=== PATIENT | female | born 1965 | race American Indian/Alaskan Native ===

== ENCOUNTER 2017-07-03 09:13 | Inpatient (IN) | payer SELFPAY ==
[2017-07-03] MEDS ORDERED: NORMODYNE IV ONE (09:41)
[2017-07-03] MEDS ORDERED: MORPHINE IV ONE ×2 (09:42→10:23)
[2017-07-03] MEDS ORDERED: ZOFRAN IV ONE (09:42)
--- NOTE | 2017-07-03 10:04 | Cat Scan Report ---
CT HEAD WITHOUT CONTRAST INDICATION: Headache. COMPARISON: None similar at this institution. FINDINGS: Noncontrast head CT demonstrates patent cavum septum pellucidum and vergae. Overall normal ventricles and sulci. Mild periventricular hypodense small vessel ischemic disease. No definite acute infarct, hemorrhage, mass effect or midline shift. No abnormal extra axial fluid collections. Normal posterior fossa with preserved basilar cisterns. Vertebrobasilar tortuosity. Normal eye globes. Clear paranasal sinuses and mastoid air cells. Normal calvarium and scalp. Few radiopaque dental material. CONCLUSION: No acute intracranial CT abnormality with microvascular changes noted, as above. Thank you for the opportunity to participate in this patient's care.
--- NOTE | 2017-07-03 10:13 | XRay Report ---
AP CHEST: HISTORY: Hypertension AP view of the chest demonstrates a normal mediastinal and cardiac contour with clear lungs and normal bony and soft tissue structures. IMPRESSION: Unremarkable AP chest.
--- NOTE | 2017-07-03 10:20 | Emergency Department Report ---
ED General Adult HPI - General Stated complaint: BLOOD PRESSURE HIGH Time Seen by Provider: 07/03/17 09:40 Source: patient, family Mode of arrival: Ambulatory Limitations: No Limitations - History of Present Illness Initial comments: Patient presents to the emergency department with a severe headache. She states that she just is given 1 blood pressure medicine a day and that she is taking it. She is providing very little historical information at this time. However she and the gentleman that is with her confirm that she's had many severe headaches like this in the past. They state that sometimes she goes to the hospital and sometimes not. She is somewhat anxious and tearful. The history is somewhat limited. She is acting like she has photo sensitivity and not wanting to open her eyes. She vomited in triage. -: Gradual, hour(s) Location: head Radiation: non-radiation Severity scale (0 -10): 10 Quality: aching Consistency: constant Improves with: none Worsens with: none Associated Symptoms: nausea/vomiting Treatments Prior to Arrival: none - Related Data Allergies Allergy/AdvReac Type Severity Reaction Status Date / Time No Known Allergies Allergy Unverified 07/03/17 09:43 ED Review of Systems ROS: Stated complaint: BLOOD PRESSURE HIGH Other details as noted in HPI Comment: Unobtainable due to pts medical conditions (Limited secondary to patient's condition. No weakness numbness or neurological change reported no neck pain reported) ED Past Medical Hx - Past Medical History Previous Medical History?: Yes Hx Hypertension: Yes - Social History Smoking Status: Never Smoker Substance Use Type: None ED Physical Exam - General Limitations: No Limitations General appearance: alert, in no apparent distress - Head Head exam: Present: atraumatic, normocephalic - Eye Eye exam: Present: normal appearance, PERRL, EOMI. Absent: scleral icterus - ENT ENT exam: Present: normal exam, mucous membranes moist - Neck Neck exam: Present: normal inspection. Absent: tenderness, meningismus - Respiratory Respiratory exam: Present: normal lung sounds bilaterally. Absent: respiratory distress - Cardiovascular Cardiovascular Exam: Present: regular rate, normal rhythm. Absent: systolic murmur, diastolic murmur, rubs, gallop - GI/Abdominal GI/Abdominal exam: Present: soft, normal bowel sounds. Absent: distended, tenderness, guarding, rebound, rigid - Extremities Exam Extremities exam: Present: normal inspection - Back Exam Back exam: Present: normal inspection - Neurological Exam Neurological exam: Present: alert, oriented X3, CN II-XII intact (as testable). Absent: motor sensory deficit (no drift) - Psychiatric Psychiatric exam: Present: anxious, flat affect - Skin Skin exam: Present: warm, dry, intact, normal color. Absent: rash ED Course Vital Signs 07/03/17 07/03/17 07/03/17 09:10 09:11 09:12 Temperature Pulse Rate Respiratory Rate Blood Pressure 211/117 211/117 Blood Pressure [Left] O2 Sat by Pulse 100 100 100 Oximetry 07/03/17 07/03/17 07/03/17 09:14 09:16 09:18 Temperature Pulse Rate Respiratory Rate Blood Pressure 211/117 211/117 211/117 Blood Pressure [Left] O2 Sat by Pulse 100 100 100 Oximetry 07/03/17 07/03/17 07/03/17 09:20 09:22 09:24 Temperature Pulse Rate 68 79 64 Respiratory 29 H 22 23 Rate Blood Pressure 211/117 211/117 211/117 Blood Pressure [Left] O2 Sat by Pulse 100 100 100 Oximetry 07/03/17 07/03/17 07/03/17 09:26 09:28 09:30 Temperature Pulse Rate 70 71 64 Respiratory 14 17 21 Rate Blood Pressure 211/117 211/117 211/117 Blood Pressure [Left] O2 Sat by Pulse 100 100 100 Oximetry 07/03/17 07/03/17 07/03/17 09:32 09:34 09:36 Temperature Pulse Rate 72 66 64 Respiratory 17 20 13 Rate Blood Pressure 199/113 199/113 199/113 Blood Pressure [Left] O2 Sat by Pulse 100 100 100 Oximetry 07/03/17 07/03/17 07/03/17 09:38 09:40 09:42 Temperature 98.5 F Pulse Rate 66 70 64 Respiratory 12 17 15 Rate Blood Pressure 199/113 199/113 199/113 Blood Pressure 208/122 [Left] O2 Sat by Pulse 100 100 100 Oximetry 07/03/17 07/03/17 07/03/17 10:10 10:13 10:14 Temperature Pulse Rate 70 Respiratory 20 Rate Blood Pressure 199/103 211/117 199/103 Blood Pressure [Left] O2 Sat by Pulse 100 100 Oximetry 07/03/17 07/03/17 07/03/17 10:16 10:18 10:20 Temperature Pulse Rate 70 62 Respiratory 16 14 Rate Blood Pressure 199/103 199/103 199/103 Blood Pressure [Left] O2 Sat by Pulse 98 99 89 Oximetry 07/03/17 07/03/17 07/03/17 10:22 10:23 10:24 Temperature Pulse Rate 48 L 65 Respiratory 18 20 13 Rate Blood Pressure 199/113 199/113 Blood Pressure [Left] O2 Sat by Pulse 100 98 97 Oximetry 07/03/17 07/03/17 07/03/17 10:26 10:28 10:29 Temperature Pulse Rate 65 64 58 L Respiratory 18 13 15 Rate Blood Pressure 199/113 200/95 200/95 Blood Pressure [Left] O2 Sat by Pulse 98 97 95 Oximetry 07/03/17 07/03/17 07/03/17 10:30 10:32 10:34 Temperature Pulse Rate 53 L 64 57 L Respiratory 12 11 L 12 Rate Blood Pressure 206/107 206/107 206/107 Blood Pressure [Left] O2 Sat by Pulse 100 98 96 Oximetry 07/03/17 07/03/17 07/03/17 10:36 10:38 10:40 Temperature Pulse Rate 59 L 57 L 47 L Respiratory 11 L 10 L 9 L Rate Blood Pressure 206/107 206/107 206/107 Blood Pressure [Left] O2 Sat by Pulse 94 99 99 Oximetry 07/03/17 07/03/17 07/03/17 10:42 10:44 10:45 Temperature Pulse Rate 59 L 50 L 51 L Respiratory 12 9 L 10 L Rate Blood Pressure 206/107 206/107 198/113 Blood Pressure [Left] O2 Sat by Pulse 91 100 96 Oximetry 07/03/17 07/03/17 07/03/17 10:46 10:48 10:50 Temperature Pulse Rate 57 L 63 61 Respiratory 18 13 12 Rate Blood Pressure 198/113 198/113 198/113 Blood Pressure [Left] O2 Sat by Pulse 100 98 97 Oximetry 07/03/17 07/03/17 07/03/17 10:52 10:54 10:56 Temperature Pulse Rate 57 L 77 65 Respiratory 11 L 12 11 L Rate Blood Pressure 198/113 198/113 198/113 Blood Pressure [Left] O2 Sat by Pulse 100 96 100 Oximetry 07/03/17 07/03/17 07/03/17 10:58 11:00 11:02 Temperature Pulse Rate 55 L 50 L 51 L Respiratory 10 L 10 L 13 Rate Blood Pressure 198/113 193/100 193/100 Blood Pressure [Left] O2 Sat by Pulse 98 93 98 Oximetry 07/03/17 07/03/17 07/03/17 11:04 11:06 11:08 Temperature Pulse Rate 63 55 L 49 L Respiratory 12 13 17 Rate Blood Pressure 193/100 193/100 193/100 Blood Pressure [Left] O2 Sat by Pulse 99 97 94 Oximetry 07/03/17 07/03/17 07/03/17 11:10 11:12 11:14 Temperature Pulse Rate 50 L 61 52 L Respiratory 16 17 16 Rate Blood Pressure 193/100 193/100 193/100 Blood Pressure [Left] O2 Sat by Pulse 97 94 98 Oximetry 07/03/17 07/03/17 07/03/17 11:15 11:16 11:18 Temperature Pulse Rate 52 L 56 L 59 L Respiratory 15 13 16 Rate Blood Pressure 190/97 190/97 190/97 Blood Pressure [Left] O2 Sat by Pulse 98 97 97 Oximetry 07/03/17 07/03/17 07/03/17 11:20 11:22 11:55 Temperature Pulse Rate 50 L 59 L 64 Respiratory 14 18 Rate Blood Pressure 190/97 190/97 187/93 Blood Pressure [Left] O2 Sat by Pulse 99 99 Oximetry - Reevaluation(s) Reevaluation #1: Patient's analgesia and blood pressure of being titrated. CT of her head was negative for acute process. Labs are yet pending. She was referred to the hospitalist staff for admission for accelerated hypertension and headache. 07/03/17 10:27 ED Medical Decision Making - Lab Data Result diagrams: 07/03/17 10:06 07/03/17 10:06 Laboratory Results - last 24 hr 07/03/17 07/03/17 07/03/17 10:06 10:06 10:06 WBC 7.5 RBC 4.86 Hgb 13.3 Hct 40.7 MCV 84 MCH 27 L MCHC 33 RDW 13.5 Plt Count 214 Lymph % (Auto) 19.9 [place] % (Auto) 6.1 Eos % (Auto) 0.4 Baso % (Auto) 0.7 Lymph # 1.5 [place] # 0.5 Eos # 0.0 Baso # 0.1 Seg Neutrophils % 72.9 H Seg Neutrophils # 5.5 PT 13.1 INR 0.94 APTT 27.6 Sodium 140 Potassium 3.4 L Chloride 100.9 Carbon Dioxide 26 Anion Gap 17 BUN 11 Creatinine 0.8 Estimated GFR > 60 BUN/Creatinine Ratio 14 Glucose 118 H Calcium 8.8 Magnesium Total Bilirubin Direct Bilirubin Indirect Bilirubin AST ALT Alkaline Phosphatase Troponin T NT-Pro-B Natriuret Pep Total Protein Albumin Albumin/Globulin Ratio 07/03/17 10:06 WBC RBC Hgb Hct MCV MCH MCHC RDW Plt Count Lymph % (Auto) [place] % (Auto) Eos % (Auto) Baso % (Auto) Lymph # [place] # Eos # Baso # Seg Neutrophils % Seg Neutrophils # PT INR APTT Sodium Potassium Chloride Carbon Dioxide Anion Gap BUN Creatinine Estimated GFR BUN/Creatinine Ratio Glucose Calcium Magnesium 1.80 Total Bilirubin 0.40 Direct Bilirubin < 0.2 Indirect Bilirubin 0.2 AST 16 ALT 10 Alkaline Phosphatase 63 Troponin T < 0.010 NT-Pro-B Natriuret Pep 289.6 Total Protein 6.8 Albumin 4.2 Albumin/Globulin Ratio 1.6 - EKG Data -: EKG Interpreted by Me EKG shows normal: sinus rhythm, axis, intervals, ST-T waves Rate: normal - EKG Data Interpretation: LVH (meeting LVH criteria) - Radiology Data Radiology results: report reviewed interpreted by me: Chest x-ray no acute process, CT of the head no acute process, microangiopathic changes. Critical care attestation.: If time is entered above; I have spent that time in minutes in the direct care of this critically ill patient, excluding procedure time. ED Disposition Clinical Impression: Accelerated hypertension, Hypokalemia Cephalalgia Qualifiers: Headache type: unspecified Headache chronicity pattern: acute headache Intractability: intractable Qualified Code(s): R51 - Headache Disposition: DC-09 OP ADMIT IP TO THIS HOSP Is pt being admited?: Yes Does the pt Need Aspirin: Yes Condition: Stable Time of Disposition: 12:27
[2017-07-03 10:29] LABS: Basophils % (Auto) 0.7 % (0.0-1.8); Eosinophils % (Auto) 0.4 % (0.0-4.3); Hematocrit 40.7 % (30.3-42.9); Hemoglobin 13.3 gm/dl (10.1-14.3); Mean Corpuscular HGB Conc 33 % (30-34); Mean Corpuscular Hemoglobin 27 pg (28-32); Mean Corpuscular Volume 84 fl (79-97); Platelet Count 214 K/mm3 (140-440); Red Blood Count 4.86 M/mm3 (3.65-5.03); Red Cell Distribution Width 13.5 % (13.2-15.2); White Blood Count 7.5 K/mm3 (4.5-11.0)
[2017-07-03 10:36] LABS: Anion Gap 17 mmol/L; BUN/Creatinine Ratio 14; Blood Urea Nitrogen 11 mg/dL (7-17); Calcium 8.8 mg/dL (8.4-10.2); Carbon Dioxide 26 mmol/L (22-30); Chloride 100.9 mmol/L (98-107); Glucose 118 mg/dL (65-100); Potassium 3.4 mmol/L (3.6-5.0); Sodium 140 mmol/L (137-145)
[2017-07-03 10:42] LABS: Alanine Aminotransferase 10 units/L (7-56); Albumin 4.2 g/dL (3.9-5); Albumin/Globulin Ratio 1.6 %; Alkaline Phosphatase 63 units/L (35-129); Total Protein 6.8 g/dL (6.3-8.2)
[2017-07-03 10:43] LABS: Bilirubin,Direct < 0.2 mg/dL (0-0.2); Bilirubin,Indirect 0.2 mg/dL
[2017-07-03 10:53] LABS: INR 0.94 (0.87-1.13); Partial Thromboplastin Time 27.6 Sec. (24.2-36.6)
[2017-07-03] MEDS ORDERED: TYLENOL PO PRN (11:20)
[2017-07-03] MEDS ORDERED: DULCOLAX PR PRN (11:20)
--- NOTE | 2017-07-03 11:31 | History and Physical Report ---
History of Present Illness Date of examination: 07/03/17 Date of admission: 07/03/2017 Chief complaint: Acute headache and increased in blood pressure History of present illness: Patient is a 51 years old female with past medical history hypertension who, presents to the Emergency Department for increased blood pressure and severe headache. Until yesterday patient was at her normal baseline state of health. Patient developed a severe headache while she was at work and when she checked her blood pressure was 203/112. She reports right upper extremity numbness, associated with nausea and vomiting. Patient boyfriend states that she had similar headaches before and few times has been admitted to the hospital. Patient is in extreme distress due to pain also a poor historian therefor history is very limited. She denies vision change, syncope, difficulty of speaking, neck pain, fever or seizure. Past History Past Medical History: hypertension, migraines Past Surgical History: No surgical history Social history: lives with family Family history: hypertension Medications and Allergies Allergies Allergy/AdvReac Type Severity Reaction Status Date / Time No Known Allergies Allergy Unverified 07/03/17 09:43 Home Medications Medication Instructions Recorded Confirmed Last Taken Type Losartan/Hydrochlorothiazide 1 each PO DAILY 07/03/17 07/03/17 07/01/17 History [Hyzaar 100-12.5 Tablet] cloNIDine [Catapres] 0.1 mg PO QHS 07/03/17 07/03/17 07/01/17 History Active Meds: Active Medications Acetaminophen (Tylenol) 650 mg PO Q4H PRN PRN Reason: Pain MILD(1-3)/Fever >100.5/[place] Acetaminophen/Butalbital/Caffeine (Fioricet) 2 tab PO Q6HR PRN PRN Reason: Headache Bisacodyl (Dulcolax) 10 mg [place] QDAY PRN PRN Reason: Constipation unrelieved by MOM Enoxaparin Sodium (Lovenox) 40 mg SUB-Q QDAY GLORIA Hydralazine HCl (Apresoline) 10 mg IV Q4H PRN PRN Reason: Blood Pressure SBP >160 Ondansetron HCl (Zofran) 4 mg IM Q4H PRN PRN Reason: Nausea And Vomiting Review of Systems Constitutional: fatigue, chronic headaches, poor appetite Gastrointestinal: nausea, vomiting Musculoskeletal: arm numbness/tingling Exam - Constitutional Vitals: Temp Pulse Resp BP Pulse Ox 98.5 F 59 L 18 190/97 99 07/03/17 09:38 07/03/17 11:22 07/03/17 11:22 07/03/17 11:22 07/03/17 11:22 General appearance: Present: no acute distress - EENT Eyes: Present: PERRL ENT: hearing intact - Neck Neck: Present: supple - Respiratory Respiratory effort: normal Respiratory: bilateral: CTA - Cardiovascular Rhythm: regular Heart Sounds: Present: S1 & S2 Peripheral Pulses: within normal limits - Abdominal General gastrointestinal: Present: soft, non-tender Female genitourinary: Present: deferred - Rectal Rectal Exam: deferred - Integumentary Integumentary: Present: clear, warm, dry - Musculoskeletal Musculoskeletal: strength equal bilaterally - Psychiatric Psychiatric: appropriate mood/affect - Neurologic Neurologic: moves all extremities - Allied Health Allied health notes reviewed: nursing Results - Labs CBC & Chem 7: 07/03/17 10:06 07/03/17 10:06 Labs: Laboratory Last Values WBC 7.5 K/mm3 (4.5-11.0) 07/03/17 10:06 RBC 4.86 M/mm3 (3.65-5.03) 07/03/17 10:06 Hgb 13.3 gm/dl (10.1-14.3) 07/03/17 10:06 Hct 40.7 % (30.3-42.9) 07/03/17 10:06 MCV 84 fl (79-97) 07/03/17 10:06 MCH 27 pg (28-32) L 07/03/17 10:06 MCHC 33 % (30-34) 07/03/17 10:06 RDW 13.5 % (13.2-15.2) 07/03/17 10:06 Plt Count 214 K/mm3 (140-440) 07/03/17 10:06 Lymph % (Auto) 19.9 % (13.4-35.0) 07/03/17 10:06 [place] % (Auto) 6.1 % (0.0-7.3) 07/03/17 10:06 Eos % (Auto) 0.4 % (0.0-4.3) 07/03/17 10:06 Baso % (Auto) 0.7 % (0.0-1.8) 07/03/17 10:06 Lymph # 1.5 K/mm3 (1.2-5.4) 07/03/17 10:06 [place] # 0.5 K/mm3 (0.0-0.8) 07/03/17 10:06 Eos # 0.0 K/mm3 (0.0-0.4) 07/03/17 10:06 Baso # 0.1 K/mm3 (0.0-0.1) 07/03/17 10:06 Seg Neutrophils % 72.9 % (40.0-70.0) H 07/03/17 10:06 Seg Neutrophils # 5.5 K/mm3 (1.8-7.7) 07/03/17 10:06 PT 13.1 Sec. (12.2-14.9) 07/03/17 10:06 INR 0.94 (0.87-1.13) 07/03/17 10:06 APTT 27.6 Sec. (24.2-36.6) 07/03/17 10:06 Sodium 140 mmol/L (137-145) 07/03/17 10:06 Potassium 3.4 mmol/L (3.6-5.0) L 07/03/17 10:06 Chloride 100.9 mmol/L (98-107) 07/03/17 10:06 Carbon Dioxide 26 mmol/L (22-30) 07/03/17 10:06 Anion Gap 17 mmol/L 07/03/17 10:06 BUN 11 mg/dL (7-17) 07/03/17 10:06 Creatinine 0.8 mg/dL (0.7-1.2) 07/03/17 10:06 Estimated GFR > 60 ml/min 07/03/17 10:06 BUN/Creatinine Ratio 14 % 07/03/17 10:06 Glucose 118 mg/dL (65-100) H 07/03/17 10:06 Calcium 8.8 mg/dL (8.4-10.2) 07/03/17 10:06 Magnesium 1.80 mg/dL (1.7-2.3) 07/03/17 10:06 Total Bilirubin 0.40 mg/dL (0.1-1.2) 07/03/17 10:06 Direct Bilirubin < 0.2 mg/dL (0-0.2) 07/03/17 10:06 Indirect Bilirubin 0.2 mg/dL 07/03/17 10:06 AST 16 units/L (5-40) 07/03/17 10:06 ALT 10 units/L (7-56) 07/03/17 10:06 Alkaline Phosphatase 63 units/L (35-129) 07/03/17 10:06 Troponin T < 0.010 ng/mL (0.00-0.029) 07/03/17 10:06 NT-Pro-B Natriuret Pep 289.6 pg/mL (0-450) 07/03/17 10:06 Total Protein 6.8 g/dL (6.3-8.2) 07/03/17 10:06 Albumin 4.2 g/dL (3.9-5) 07/03/17 10:06 Albumin/Globulin Ratio 1.6 % 07/03/17 10:06 Assessment and Plan Assessment and plan: Patient is a 51 years old female with past medical history hypertension who, presents to the Emergency Department for increased blood pressure and severe headache. Right upper extremity numbness CT of the head no acute process, microangiopathic changes. Echocardiogram ordered VL carotid duplex ordered IV fluid hydration MR of the brain ordered Neurology consult Supportive care. Accelerated hypertension Continue home antihypertensive medication Hydralazine IV for SBP>160 Closely monitor blood pressure Sever headache Most likely due to chronic migraine headache CT of the head no acute process, microangiopathic changes. Started on fioricet when necessary Hypokalemia Replaced Closely monitor electrolytes DVT/prophylaxis Lovenox Advance Directives: Yes VTE prophylaxis?: Chemical Contraindication Mechanical VTE Prophylaxis: Treatment Not Indicated Plan of care discussed with patient/family: Yes
[2017-07-03] MEDS ORDERED: APRESOLINE ONE (11:49)
[2017-07-03] MEDS: APRESOLINE IV PRN ×2 (11:55→15:46)
[2017-07-03] MEDS ORDERED: K-DUR PO ONE (12:28)
[2017-07-03 12:48] LABS: Urine Drugs of Abuse Note Disclamer
[2017-07-03] MEDS: ZOFRAN IV PRN ×2 (12:48→15:46)
[2017-07-03] MEDS: FIORICET PO PRN (15:46)
--- NOTE | 2017-07-03 20:43 | Magnetic Resonance Report ---
FINAL REPORT EXAM: MR BRAIN WO CON HISTORY: headache and upper extremity numbness TECHNIQUE: Multiplanar MRI of the brain. No contrast administered. PRIORS: None. FINDINGS: Brain volume is normal for age. Mild, patchy foci of T2 and FLAIR bright signal in the periventricular and subcortical white matter are nonspecific, but may relate to chronic small vessel ischemic change. Cavum septum pellucidum incidentally noted. No acute infarct seen on diffusion-weighted imaging. No parenchymal mass, mass-effect, hemorrhage, midline shift or hydrocephalus. No pathologic extra-axial fluid collection. No pineal region or sellar masses. Mild cerebellar tonsillar ectopia measuring 2-3 mm. No cerebellar tonsillar herniation. IMPRESSION: 1. No acute intracranial findings. 2. Chronic ischemic changes suspected.
[2017-07-04] MEDS: APRESOLINE IV PRN (05:51)
[2017-07-04] MEDS: FIORICET PO PRN (08:40)
[2017-07-04] MEDS ORDERED: NORVASC PO SCH (10:00)
[2017-07-04] MEDS ORDERED: LOSARTAN PO SCH (10:00)
[2017-07-04] MEDS ORDERED: HYDROCHLOROTHIAZIDE PO SCH (10:00)
[2017-07-04] MEDS ORDERED: BABY ASPIRIN PO SCH (10:00)
[2017-07-04] MEDS: COZAAR PO SCH (10:34)
[2017-07-04] MEDS: LOVENOX SUB-Q SCH (10:35)
[2017-07-04] MEDS: HCTZ PO SCH (10:35)
[2017-07-04] MEDS: BABY ASPIRIN PO SCH (10:35)
[2017-07-04 11:07] LABS: Basophils % (Auto) 0.4 % (0.0-1.8); Eosinophils % (Auto) 0.3 % (0.0-4.3); Hemoglobin 13.4 gm/dl (10.1-14.3); Mean Corpuscular HGB Conc 32 % (30-34); Mean Corpuscular Hemoglobin 27 pg (28-32); Mean Corpuscular Volume 85 fl (79-97); Platelet Count 240 K/mm3 (140-440); Red Blood Count 4.97 M/mm3 (3.65-5.03); Red Cell Distribution Width 13.5 % (13.2-15.2)
[2017-07-04 11:30] LABS: Anion Gap 16 mmol/L; BUN/Creatinine Ratio 10; Blood Urea Nitrogen 10 mg/dL (7-17); Calcium 9.2 mg/dL (8.4-10.2); Carbon Dioxide 27 mmol/L (22-30); Chloride 101.9 mmol/L (98-107); Cholesterol 197 mg/dL (50-199); Glucose 93 mg/dL (65-100); HDL Cholesterol 83 mg/dL (40-59); LDL Cholesterol,Direct 100 mg/dL (50-130); Sodium 141 mmol/L (137-145); Triglycerides 70 mg/dL (2-149)
[2017-07-04 11:49] LABS: Potassium 4.1 mmol/L (3.6-5.0)
--- NOTE | 2017-07-04 12:06 | Progress Note ---
Assessment and Plan Assessment and plan: Patient is a 51-year-old woman with history of migraine headaches and hypertension who presents with severe headaches. She was admitted due to uncontrolled blood pressure and rule out stroke. Brain MRI was negative for stroke. TTE read as estimated EF 55-60%, mild MR otherwise unremarkable. Ultrasound Carotid duplex unremarkable, chest x-ray unremarkable. -Malignant hypertension, POA: Treatment with antihypertensive -Headaches, intractable most likely related to acute on chronic worsening migraine headaches due to sinusitis: Treat symptomatically, anti-emetics and treat sinusitis -Low-grade fevers with headaches, most likely due to acute sinusitis vs other: Check UA, empiric treatment with IV Rocephin and consulted infectious disease -Hypokalemia, resolved: Monitor potassium level -DVT prophylaxis: SCDs and sq lovenox full code Disposition: continue inpatient care History Interval history: Patient was seen and examined. Follow-up on current diagnosis/headaches. Overnight uneventful. Patient denies any chest pain, shortness breath, nausea/ vomiting. Imaging, nursing note, chart, labs and old chart reviewed. Discussed with patient. Headaches are bifrontal, severe, constant related to facial pain. Her maxillary and frontal sinuses are tender. Hospitalist Physical - Physical exam Narrative exam: GEN: WDWN, NAD, AWAKE, ALERT, ORIENTATED 3 HEENT: NCAT, EOMI, PERRL, OP Clear, enlarged nasal turbinates, tenderness bilateral frontal sinuses NECK: supple, no adenopathy, no thyromegaly, no JVD CVS/HEART: RRR, NORMAL S1S2, NO JVD, pulses present bilaterally CHEST/LUNGS: CTA B, Symmetrical chest expansion, good air entry bilaterally GI/Abdomen: soft, NTND, good bowel sounds, no guarding or rebound /Bladder: no suprapubic tenderness, no CVA or paraspinal tenderness EXT/Skin: no c/c/e, no obvious rash MSK: FROM x 4 Neuro: CN 2-12 grossly intact, no new focal deficits Psych: calm - Constitutional Vitals: Temp Pulse Resp BP Pulse Ox 100.1 F H 67 20 173/81 99 07/04/17 10:27 07/04/17 10:27 07/04/17 10:27 07/04/17 10:27 07/04/17 10:27 General appearance: Present: no acute distress Results - Labs CBC & Chem 7: 10/25/17 10:39 07/04/17 10:39 Labs: Laboratory Last Values WBC 9.0 K/mm3 (4.5-11.0) 07/04/17 10:39 RBC 4.97 M/mm3 (3.65-5.03) 07/04/17 10:39 Hgb 13.4 gm/dl (10.1-14.3) 07/04/17 10:39 Hct 42.0 % (30.3-42.9) 07/04/17 10:39 MCV 85 fl (79-97) 07/04/17 10:39 MCH 27 pg (28-32) L 07/04/17 10:39 MCHC 32 % (30-34) 07/04/17 10:39 RDW 13.5 % (13.2-15.2) 07/04/17 10:39 Plt Count 240 K/mm3 (140-440) 07/04/17 10:39 Lymph % (Auto) 23.2 % (13.4-35.0) 07/04/17 10:39 [place] % (Auto) 6.8 % (0.0-7.3) 07/04/17 10:39 Eos % (Auto) 0.3 % (0.0-4.3) 07/04/17 10:39 Baso % (Auto) 0.4 % (0.0-1.8) 07/04/17 10:39 Lymph # 2.1 K/mm3 (1.2-5.4) 07/04/17 10:39 [place] # 0.6 K/mm3 (0.0-0.8) 07/04/17 10:39 Eos # 0.0 K/mm3 (0.0-0.4) 07/04/17 10:39 Baso # 0.0 K/mm3 (0.0-0.1) 07/04/17 10:39 Seg Neutrophils % 69.3 % (40.0-70.0) 07/04/17 10:39 Seg Neutrophils # 6.2 K/mm3 (1.8-7.7) 07/04/17 10:39 PT 13.1 Sec. (12.2-14.9) 07/03/17 10:06 INR 0.94 (0.87-1.13) 07/03/17 10:06 APTT 27.6 Sec. (24.2-36.6) 07/03/17 10:06 Sodium 141 mmol/L (137-145) 07/04/17 10:39 Potassium 4.1 mmol/L (3.6-5.0) D 07/04/17 10:39 Chloride 101.9 mmol/L (98-107) 07/04/17 10:39 Carbon Dioxide 27 mmol/L (22-30) 07/04/17 10:39 Anion Gap 16 mmol/L 07/04/17 10:39 BUN 10 mg/dL (7-17) 07/04/17 10:39 Creatinine 1.0 mg/dL (0.7-1.2) 07/04/17 10:39 Estimated GFR > 60 ml/min 07/04/17 10:39 BUN/Creatinine Ratio 10 % 07/04/17 10:39 Glucose 93 mg/dL (65-100) 07/04/17 10:39 Calcium 9.2 mg/dL (8.4-10.2) 07/04/17 10:39 Magnesium 1.80 mg/dL (1.7-2.3) 07/03/17 10:06 Total Bilirubin 0.40 mg/dL (0.1-1.2) 07/03/17 10:06 Direct Bilirubin < 0.2 mg/dL (0-0.2) 07/03/17 10:06 Indirect Bilirubin 0.2 mg/dL 07/03/17 10:06 AST 16 units/L (5-40) 07/03/17 10:06 ALT 10 units/L (7-56) 07/03/17 10:06 Alkaline Phosphatase 63 units/L (35-129) 07/03/17 10:06 Troponin T < 0.010 ng/mL (0.00-0.029) 07/03/17 10:06 NT-Pro-B Natriuret Pep 289.6 pg/mL (0-450) 07/03/17 10:06 Total Protein 6.8 g/dL (6.3-8.2) 07/03/17 10:06 Albumin 4.2 g/dL (3.9-5) 07/03/17 10:06 Albumin/Globulin Ratio 1.6 % 07/03/17 10:06 Triglycerides 70 mg/dL (2-149) 07/04/17 10:39 Cholesterol 197 mg/dL (50-199) 07/04/17 10:39 LDL Cholesterol Direct 100 mg/dL (50-130) 07/04/17 10:39 HDL Cholesterol 83 mg/dL (40-59) H 07/04/17 10:39 Cholesterol/HDL Ratio 2.37 % 07/04/17 10:39 Urine Opiates Screen Presumptive negative 07/03/17 12:43 Urine Methadone Screen Presumptive negative 07/03/17 12:43 Ur Barbiturates Screen Presumptive negative 07/03/17 12:43 Ur Phencyclidine Scrn Presumptive negative 07/03/17 12:43 Ur Amphetamines Screen Presumptive negative 07/03/17 12:43 U Benzodiazepines Scrn Presumptive negative 07/03/17 12:43 Urine Cocaine Screen Presumptive negative 07/03/17 12:43 U Marijuana (THC) Screen Presumptive negative 07/03/17 12:43 Drugs of Abuse Note Disclamer 07/03/17 12:43
[2017-07-04] MEDS ORDERED: BABY ASPIRIN PO ONE (12:27)
--- NOTE | 2017-07-04 13:14 | Consultation ---
History of Present Illness - Reason for Consult Consult date: 07/04/17 Fever Requesting physician: BALDOMERO HO - History of Present Illness 51 years old female with history of hypertension and migraine headaches, admitted on 07/03/2017 due to 24 hours history of severe acute headache. Headache was frontal, non radiation, associated with nausea. Headache felt like her previous migraine attacks. Patient also has been complaining of nasal congestion and runny nose on and off for 3 months. Nasal secretion mainly clear sometimes yellow. She thought she had a sinusitis. Denies any sick contacts. Denies any recent travels. In the emergency room, initial temperature was 98.5 which went up to 100.1, heart rate was 68, blood pressure 211/117. Initial white count was 7.5. CT of the head was unremarkable, sinuses and mastoid clear. Microbiology: none Current Antimicrobials: Ceftriaxone Past History Past Medical History: hypertension, migraines Past Surgical History: No surgical history Social history: lives with family Family history: hypertension Medications and Allergies Allergies Allergy/AdvReac Type Severity Reaction Status Date / Time No Known Allergies Allergy Unverified 07/03/17 09:43 Home Medications Medication Instructions Recorded Confirmed Last Taken Type Losartan/Hydrochlorothiazide 1 each PO DAILY 07/03/17 07/03/17 07/01/17 History [Hyzaar 100-12.5 Tablet] cloNIDine [Catapres] 0.1 mg PO QHS 07/03/17 07/03/17 07/01/17 History Active Meds: Active Medications Acetaminophen (Tylenol) 650 mg PO Q4H PRN PRN Reason: Pain MILD(1-3)/Fever >100.5/[place] Last Admin: 07/03/17 21:22 Dose: 650 mg Acetaminophen/Butalbital/Caffeine (Fioricet) 2 tab PO Q6HR PRN PRN Reason: Headache Last Admin: 07/04/17 08:40 Dose: 1 tab Aspirin (Baby Aspirin) 81 mg PO QDAY [facility] Last Admin: 07/04/17 10:35 Dose: 81 mg Bisacodyl (Dulcolax) 10 mg CA QDAY PRN PRN Reason: Constipation unrelieved by MOM Clonidine HCl (Catapres) 0.1 mg PO QHS GLORIA Enoxaparin Sodium (Lovenox) 40 mg SUB-Q QDAY [facility] Last Admin: 07/04/17 10:35 Dose: 40 mg Hydralazine HCl (Apresoline) 10 mg IV Q4H PRN PRN Reason: Blood Pressure SBP >160 Last Admin: 07/04/17 05:51 Dose: 10 mg Hydrochlorothiazide (Hctz) 12.5 mg PO QDAY [facility] Last Admin: 07/04/17 10:35 Dose: 12.5 mg Ceftriaxone Sodium (Rocephin/Ns 1 Gm/50 Ml) 1 gm in 50 mls @ 100 mls/hr IV Q24HR [facility] PRN Reason: Protocol Losartan Potassium (Cozaar) 100 mg PO QDAY [facility] Last Admin: 07/04/17 10:34 Dose: 50 mg Ondansetron HCl (Zofran) 4 mg IV Q4H PRN PRN Reason: Nausea And Vomiting Last Admin: 07/03/17 15:46 Dose: 4 mg Review of Systems All systems: negative (as per HPI) Physical Examination - Physical Exam Narrative exam: General appearance: Alert in NAD, conversant Eyes: anicteric sclerae, moist conjunctivae; no lid-lag; PERRLA HENT: Atraumatic; oropharynx clear +sinus tenderness Neck: Trachea midline; supple, no thyromegaly or lymphadenopathy Lungs: CTA, with normal respiratory effort and no intercostal retractions CV: RRR, no murmurs Abdomen: Soft, non-tender; no masses or hepatosplenomegaly Extremities: No peripheral edema or extremity lymphadenopathy Skin: Normal temperature, turgor and texture; no rash, ulcers or subcutaneous nodules Psych: Appropriate affect, alert and oriented to person, place and time. Neuro: alert and oriented x 3. Moving all extermities Lines: No CVL / PICC - Constitutional Vitals: Vital Signs Temp Pulse Resp BP Pulse Ox 98.8 F 80 20 156/86 99 07/04/17 12:25 07/04/17 12:25 07/04/17 12:25 07/04/17 12:25 07/04/17 12:25 Temperature -Last 24 Hours Temperature 98.8 F Temperature 100.1 F Temperature 99.0 F Temperature 99.8 F Temperature 100.1 F Temperature 99.8 F Results - Labs CBC & Chem 7: 07/04/17 10:39 07/04/17 10:39 Labs: Abnormal lab results 07/04/17 07/04/17 Range/Units 10:39 10:39 MCH 27 L (28-32) pg HDL Cholesterol 83 H (40-59) mg/dL Assessment and Plan Assessment: 1) Fever: Present on admission; unclear etiology-?viral syndrome, ?sinusitis ( however CT head sinuses were clear) 2) Headaches: from HTN emergency =/- migraine - already resolved Plan: -obtain blood cultures, UA, urine culture, procalcitonin, C-reactive protein ( CRP) -repeat CXR tomorrow -continue ceftriaxone -if clinically better ok to d/c on levaquin total 5 days to cover ?sinusitis Thank you Dr Ho for your consultation, will follow up with you. Lashanda Carmona MD Infectious Diseases Specialist [facility] M [phone] O [phone]
[2017-07-04] MEDS: ROCEPHIN/NS 1 GM/50 ML 1 GM/50 ML BAG IV SCH (13:30)
--- NOTE | 2017-07-04 13:33 | XRay Report ---
ROUTINE CHEST, TWO VIEWS: Nonspecific pulmonary distress, hypertension. PA and lateral views demonstrate the heart and mediastinal contour to be of normal size and shape. The lungs are clear and fully expanded and the soft tissues and bony structures are normal. IMPRESSION: Normal study.
[2017-07-04 15:24] LABS: Bacteria,Urine 1+ /HPF (Negative); Bilirubin,Urine NEG (Negative); Blood,Urine NEG (Negative); Ketones,Urine NEG (Negative); Leukocyte Esterase,Urine NEG (Negative); Mucus,Urine FEW /HPF; Nitrite,Urine NEG (Negative); Protein,Urine <15 mg/dL mg/dL (Negative); RBC,Urine < 1.0 /HPF (0.0-6.0); Urobilinogen,Urine < 2.0 mg/dL (<2.0)
[2017-07-04] MEDS ORDERED: CATAPRES PO SCH (22:00)
[2017-07-05 06:32] LABS: Hematocrit 38.8 % (30.3-42.9); Mean Corpuscular HGB Conc 33 % (30-34); Mean Corpuscular Hemoglobin 28 pg (28-32); Mean Corpuscular Volume 84 fl (79-97); Platelet Count 215 K/mm3 (140-440); Red Blood Count 4.62 M/mm3 (3.65-5.03); Red Cell Distribution Width 13.6 % (13.2-15.2); White Blood Count 6.1 K/mm3 (4.5-11.0)
[2017-07-05 06:52] LABS: Anion Gap 17 mmol/L; BUN/Creatinine Ratio 15; Blood Urea Nitrogen 12 mg/dL (7-17); Carbon Dioxide 26 mmol/L (22-30); Chloride 99.5 mmol/L (98-107); Glucose 98 mg/dL (65-100); Potassium 3.6 mmol/L (3.6-5.0); Sodium 139 mmol/L (137-145)
--- NOTE | 2017-07-05 09:14 | Discharge Summary ---
Providers - Providers Date of Admission: 07/03/17 11:21 Date of discharge: 07/05/17 Attending physician: SCOOTER LAWRENCE 07/03/17 11:33 Consult to Physician [CONS] Routine Consulting Provider: YEMI MEDINA Reason For Exam: upper extremity numbness Place consult to:: gt/ Notified:: OFFICE Phone number called:: yes/[phone] Was contact made?: Yes If yes, spoke with:: ABHIJEET Time called:: 13:40 07/04/17 11:57 Consult to Physician [CONS] Routine Consulting Provider: ALINE HODGE Reason For Exam: Low grade temp Place consult to:: Luis Notified:: yes Phone number called:: [phone] If yes, spoke with:: Dr Smith Time called:: 12:30 Primary care physician: [facility] [employer]S[facility] Hospitalization Condition: Stable Hospital course: See Dictation in reports---Dictated Disposition: DC-01 TO HOME OR SELFCARE Time spent for discharge: 31 min Core Measure Documentation - Palliative Care Palliative Care/ Comfort Measures: Not Applicable - Core Measures Any of the following diagnoses?: none Exam - Constitutional Vitals: Temp Pulse Resp BP Pulse Ox 98.5 F 65 18 130/79 94 07/05/17 04:06 07/05/17 04:06 07/05/17 04:06 07/05/17 04:06 07/05/17 04:06 General appearance: Present: no acute distress, well-nourished - EENT Eyes: Present: PERRL ENT: hearing intact, clear oral mucosa - Neck Neck: Present: supple, normal ROM - Respiratory Respiratory effort: normal Respiratory: bilateral: CTA - Cardiovascular Heart Sounds: Present: S1 & S2. Absent: rub, click - Extremities Extremities: pulses symmetrical, No edema Peripheral Pulses: within normal limits - Abdominal General gastrointestinal: Present: soft, non-tender, non-distended, normal bowel sounds Female genitourinary: Present: normal - Integumentary Integumentary: Present: clear, warm, dry - Musculoskeletal Musculoskeletal: gait normal, strength equal bilaterally - Psychiatric Psychiatric: appropriate mood/affect, intact judgment & insight - Neurologic Neurologic: CNII-XII intact, moves all extremities Plan Activity: no restrictions Diet: low salt Follow up with: PRIMARY CARE, [Primary Care Provider] - 3-5 Days
[2017-07-05 09:28] VITALS: BP 137/81
--- NOTE | 2017-07-05 09:50 | Discharge Summary ---
HOSPITAL COURSE: The patient was admitted for hypertensive emergency and severe headache and hypokalemia. The patient also had a low-grade fever, which was attributed to possible sinusitis. The patient was given ceftriaxone for sinusitis. ID consult was requested. The patient was continued on hydrochlorothiazide 12.5 daily and losartan 100 daily. The patient's blood pressure responded well, came down to 130/79 and 130/78. As per ID, the patient may have sinusitis. Continue Levaquin as outpatient. DISCHARGE MEDICATIONS: The patient is being discharged on losartan 100/25 daily, potassium 10 mEq daily, Levaquin 750 daily for 5 days. DISCHARGE DIAGNOSES: Hypertensive emergency, sinusitis. Follow up with primary care and the patient was advised compliance with medications. JOB# [id number] ARTEMIO/DENICE
[2017-07-05] MEDS: BABY ASPIRIN PO SCH (09:53)
[2017-07-05] MEDS: HCTZ PO SCH (09:53)
[2017-07-05] MEDS: ROCEPHIN/NS 1 GM/50 ML 1 GM/50 ML BAG IV SCH (09:54)
[2017-07-05] MEDS: LOVENOX SUB-Q SCH (09:54)
[2017-07-05] MEDS: COZAAR PO SCH (09:56)
--- NOTE | 2017-07-05 11:32 | Progress Note ---
Assessment and Plan Assessment: 1) Fever: Present on admission; unclear etiology-?viral syndrome, ?sinusitis ( however CT head sinuses were clear). CRP=0.9. Repeat CXR normal/ 2) Headaches: from HTN emergency =/- migraine - already resolved Plan: - ok to d/c on levaquin total 5 days to cover ?sinusitis I am signing off Thank you Dr Ho for your consultation, will follow up with you. Lashanda Carmona MD Infectious Diseases Specialist [facility] M [phone] O [phone] Subjective Date of service: 07/05/17 Principal diagnosis: fever Interval history: Feels better no complaints. wants to go home. Objective - Exam Narrative Exam: General appearance: Alert in NAD, conversant Eyes: anicteric sclerae, moist conjunctivae; no lid-lag; PERRLA HENT: Atraumatic; oropharynx clear +sinus tenderness Neck: Trachea midline; supple, no thyromegaly or lymphadenopathy Lungs: CTA CV: RRR, no murmurs Abdomen: Soft, non-tender; no masses or hepatosplenomegaly Extremities: No peripheral edema or extremity lymphadenopathy Skin: Normal temperature, turgor and texture; no rash, ulcers or subcutaneous nodules Psych: Appropriate affect, alert and oriented to person, place and time. Neuro: alert and oriented x 3. Moving all extermities Lines: No CVL / PICC - Constitutional Vitals: Vital Signs Temp Pulse Resp BP Pulse Ox 98.0 F 56 L 20 137/81 99 07/05/17 07:54 07/05/17 07:54 07/05/17 07:54 07/05/17 07:54 07/05/17 07:54 Temperature -Last 24 Hours Temperature 98.0 F Temperature 98.5 F Temperature 98.6 F Temperature 99.0 F Temperature 98.7 F Temperature 98.8 F - Labs CBC & Chem 7: 07/05/17 06:03 07/05/17 06:03
== END 2017-07-05 11:50 | disposition home or self-care (01) | DRG 305 ==
LOC: ED 09:13 → 3A 11:21
PROVIDERS: ADMIT Hospitalist; ATTEND Internal Medicine
DX: I16.1 Hypertensive emergency (principal); I10 Essential (primary) hypertension; R51 Headache; R20.2 Paresthesia of skin; E87.6 Hypokalemia; J32.9 Chronic sinusitis, unspecified; G43.909 Migraine, unspecified, not intractable, without status migrainosus; Z82.49 Family history of ischemic heart disease and other diseases of the circulatory system
CPT/HCPCS: 36415; 70450; 70551; 71010; 71020; 80048; 80061; 80074; 80307; 81001; 83735; 83880; 84484; 85025; 85027; 85610; 85730; 86140; 87040; 93005; 93010; 93306; 93880; 96374; 96375; 99285; J0360; J0696; J1650; J2270; J2405